=== PATIENT | male | born 1975 | race Caucasian/White ===

== ENCOUNTER 2020-08-21 21:33 | Emergency (ER) | payer SELFPAY ==
[~2020-08-21] VITALS: Ht 182.9 cm; Wt 99.8 kg
== END 2020-08-22 02:40 | disposition home or self-care (01) ==
LOC: ER 21:33
DX: S43.004A Unspecified dislocation of right shoulder joint, initial encounter (principal); X58.XXXA Exposure to other specified factors, initial encounter; Y93.19 Activity, other involving water and watercraft
CPT/HCPCS: 23655; 73020; 73030; 96374; 99283-25; A9270; J1170; J2704; J7030